=== PATIENT | male | born 1955 | race Caucasian/White ===

== ENCOUNTER 2020-08-05 12:52 | Outpatient (REF) | payer OTHER, SELFPAY ==
[2020-08-05 13:46] LABS: MANUAL DIFF FLAG NO
[2020-08-05 13:50] LABS: Basophils Percent Auto 0.2 % (0-2); Eosinophils Absolute Auto 0.1 X10*3/uL (0.0-0.4); Eosinophils Percent Auto 0.6 % (0-4); Hemoglobin 15.4 g/dl (14.0-18.0); Imm Gran Abs Auto 0.07 X10*3/uL (0.00-0.03); Imm Gran Pct Auto 0.7 % (0.0-0.4); Lymphocytes Absolute Auto 2.7 X10*3/uL (1.2-4.9); Lymphocytes Percent Auto 26.3 % (20-40); Mean Corpuscular HGB Conc 34.2 g/dl (31.0-36.0); Mean Corpuscular Hemoglobin 30.6 pg (27.0-33.0); Mean Corpuscular Volume 89.5 fL (80-98); Mean Platelet Volume 10.9 fL (9.4-12.4); Monocytes Absolute Auto 0.8 X10*3/uL (0.1-1.2); Monocytes Percent Auto 8.2 % (2-11); Neutrophils Absolute Auto 6.5 X10*3/uL (2.0-8.3); Platelet Count 274 X10*3/uL (160-400); Red Blood Count 5.03 X10*6/uL (4.60-5.80); Red Cell Distribution Width 11.9 % (11.0-16.0); White Blood Count 10.2 X10*3/uL (4.8-10.8)
[2020-08-05 14:16] LABS: Glucose Urine UA NEG (NEG); Leukocyte Esterase Urine NEG (NEG); Nitrite Urine NEG (NEG); Urine Blood NEG (NEG); Urine Ketones NEG (NEG); Urine Protein NEG (NEG-TRACE)
[2020-08-05 14:17] LABS: Appearance Urine HAZY; Color Urine YELLOW
[2020-08-05 14:37] LABS: Alanine Aminotransferase 56 U/L (0-40); Albumin Level 4.8 g/dL (3.5-5.0); Alkaline Phosphatase 87 U/L (39-117); Anion Gap 15 (12-20); Aspartate Amino Transferase 41 U/L (5-37); Bilirubin Total 0.8 mg/dL (0.0-1.0); Blood Urea Nitrogen 23 mg/dL (9-16); C Reactive Protein 0.67 mg/dL (< or = 0.50); Calcium 9.7 mg/dL (8.4-10.2); Carbon Dioxide 24 mmol/L (22-29); Chloride 101 mmol/L (96-108); Estimated Glomerular Filt Rate > 60; Glucose Random 97 mg/dL (60-115); Lipase 17 U/L (8-78); Potassium 4.1 mmol/l (3.3-5.1); Sodium 136 mmol/L (135-145); Total Protein 7.5 g/dL (6.5-8.0)
== END 2020-08-05 12:53 | disposition home or self-care (01) ==
LOC: HO.10HDL 12:52
PROVIDERS: Visit Provider Internal Medicine
DX: R11.0 Nausea (principal); I10 Essential (primary) hypertension
CPT/HCPCS: 36415; 80053; 81003; 83690; 85025; 86140

== ENCOUNTER 2021-03-03 12:20 | Outpatient (REF) | payer OTHER, SELFPAY ==
--- NOTE | ~2021-03-03 | XR_ITS ---
EXAMINATION: XR CHEST CLINICAL INFORMATION: Chest wall strain. COMPARISON: Chest 06/22/2015 TECHNIQUE: 2 views of the chest were obtained. FINDINGS: Lungs are well-expanded and clear. The heart size and pulmonary vascularity is normal. There is mild elevation of left hemidiaphragm, stable to 2015. There is mild ventral spondylosis lower dorsal spine. No lytic process. XR/XR chest 2V IMPRESSION: No acute cardiopulmonary process seen. Elevated left hemidiaphragm, unchanged to previous study 06/22/2015.
[2021-03-03 13:14] LABS: MANUAL DIFF FLAG NO
[2021-03-03 13:27] LABS: Basophils Percent Auto 0.4 % (0-2); Eosinophils Absolute Auto 0.2 X10*3/uL (0.0-0.4); Eosinophils Percent Auto 1.6 % (0-4); Hematocrit 42.2 % (42-52); Hemoglobin 13.2 g/dl (14.0-18.0); Imm Gran Abs Auto 0.04 X10*3/uL (0.00-0.03); Imm Gran Pct Auto 0.4 % (0.0-0.4); Lymphocytes Absolute Auto 2.7 X10*3/uL (1.2-4.9); Lymphocytes Percent Auto 29.2 % (20-40); Mean Corpuscular HGB Conc 31.3 g/dl (31.0-36.0); Mean Corpuscular Hemoglobin 27.2 pg (27.0-33.0); Monocytes Absolute Auto 0.6 X10*3/uL (0.1-1.2); Monocytes Percent Auto 6.3 % (2-11); Neutrophils Absolute Auto 5.8 X10*3/uL (2.0-8.3); Neutrophils Percent Auto 62.1 % (45-73); Platelet Count 315 X10*3/uL (160-400); Red Blood Count 4.85 X10*6/uL (4.60-5.80); Red Cell Distribution Width 12.3 % (11.0-16.0); White Blood Count 9.4 X10*3/uL (4.8-10.8)
[2021-03-03 13:57] LABS: Alanine Aminotransferase 38 U/L (0-40); Albumin Level 4.6 g/dL (3.5-5.0); Alkaline Phosphatase 92 U/L (39-117); Anion Gap 14 (12-20); Aspartate Amino Transferase 29 U/L (5-37); Bilirubin Total 0.4 mg/dL (0.0-1.0); Blood Urea Nitrogen 30 mg/dL (9-16); C Reactive Protein 0.62 mg/dL (< or = 0.50); Calcium 10.2 mg/dL (8.4-10.2); Carbon Dioxide 24 mmol/L (22-29); Chloride 106 mmol/L (96-108); Estimated Glomerular Filt Rate > 60; Glucose Random 90 mg/dL (60-115); Potassium 4.4 mmol/L (3.3-5.1); Sodium 140 mmol/L (135-145); Total Protein 7.4 g/dL (6.5-8.0)
== END 2021-03-03 12:21 | disposition home or self-care (01) ==
LOC: HO.XRAY 12:20
PROVIDERS: PCP Internal Medicine; Visit Provider Internal Medicine
DX: R07.89 Other chest pain (principal); I10 Essential (primary) hypertension
CPT/HCPCS: 36415; 71046; 80053; 82550; 85025; 86140

== ENCOUNTER 2021-03-30 03:25 | Emergency (ER) | payer OTHER, SELFPAY ==
--- NOTE | ~2021-03-30 | CT_ITS ---
EXAMINATION: CT ABDOMEN AND PELVIS WITHOUT CONTRAST CLINICAL INFORMATION: Abdominal pain COMPARISON: 08/10/2020 TECHNIQUE: Multidetector volumetric imaging was performed from the superior aspect of the liver through the pubic symphysis. Sagittal and coronal reformatted images were obtained on the technologist's workstation. This CT examination was performed using dose optimization techniques as appropriate, variously including the following: *Automated exposure control *Adjustment of mA and/or kV according to patient size (this includes techniques or standardized protocols for targeted exams where dose is matched to indication/reason for exam; i.e. extremities or head) *Use of iterative reconstruction technique DLP: 925 mGy-cm FINDINGS: LUNG BASES: Few tiny nodules noted along the left diaphragmatic pleura measuring up to 5 mm, new from 08/10/2020. LIVER, GALLBLADDER, AND BILIARY TREE: The liver is normal in size, shape, and attenuation. No focal hepatic lesion or biliary ductal dilatation is present. The gallbladder is unremarkable with no evidence of radiopaque gallstones, gallbladder wall thickening, or obvious pericholecystic inflammatory changes. PANCREAS: Unremarkable. SPLEEN: Unremarkable. ADRENAL GLANDS: Unremarkable. KIDNEYS AND URETERS: The kidneys are normal in size, shape, and attenuation. Redemonstrated bilateral renal cysts. No hydronephrosis, hydroureter, or calculi seen. No perinephric stranding. BLADDER: Unremarkable. GASTROINTESTINAL TRACT: The small and large bowel are unremarkable. The appendix is unremarkable. No free fluid or free air is seen. ABDOMINAL WALL: Fat-containing inguinal hernias noted. LYMPH NODES: Normal. VASCULAR: Mild scattered vascular calcifications. PELVIC VISCERA: Unremarkable. OSSEOUS STRUCTURES: Degenerative changes are noted in the spine. CT/CT abdomen pelvis wo con IMPRESSION: 1. No acute findings identified in the abdomen/pelvis. 2. Few nonspecific nodules along the left diaphragmatic pleura measuring up to 5 mm, new from 08/10/2020. Follow-up chest CT in 6 months is advised.
[2021-03-30 03:36] VITALS: BP 150/96; PULSE 70; RESP 20; TEMP 37.1; O2SAT 96; BMI 43.3
[2021-03-30 04:48] LABS: MANUAL DIFF FLAG NO
[2021-03-30] MEDS: 0.9 % Sodium Chloride 1,000 ML 999 ML IVCONT ×2 (04:48)
[2021-03-30 04:49] LABS: Basophils Percent Auto 0.2 % (0-2); Eosinophils Absolute Auto 0.4 X10*3/uL (0.0-0.4); Hematocrit 39.2 % (42-52); Hemoglobin 12.5 g/dl (14.0-18.0); Imm Gran Abs Auto 0.02 X10*3/uL (0.00-0.03); Imm Gran Pct Auto 0.2 % (0.0-0.4); Lymphocytes Absolute Auto 3.1 X10*3/uL (1.2-4.9); Lymphocytes Percent Auto 35.9 % (20-40); Mean Corpuscular HGB Conc 31.9 g/dl (31.0-36.0); Mean Corpuscular Hemoglobin 27.3 pg (27.0-33.0); Mean Corpuscular Volume 85.6 fL (80-98); Mean Platelet Volume 10.7 fL (9.4-12.4); Monocytes Absolute Auto 0.6 X10*3/uL (0.1-1.2); Monocytes Percent Auto 7.3 % (2-11); Neutrophils Absolute Auto 4.5 X10*3/uL (2.0-8.3); Neutrophils Percent Auto 52.4 % (45-73); Platelet Count 254 X10*3/uL (160-400); Red Blood Count 4.58 X10*6/uL (4.60-5.80); Red Cell Distribution Width 12.9 % (11.0-16.0); White Blood Count 8.7 X10*3/uL (4.8-10.8)
[2021-03-30 04:56] LABS: Glucose Urine UA NEG (NEG); Leukocyte Esterase Urine NEG (NEG); Nitrite Urine NEG (NEG); Specific Gravity - Urine 1.025 (1.005-1.025); Urine Blood NEG (NEG); Urine Ketones NEG (NEG); Urine Protein NEG (NEG-TRACE)
[2021-03-30 04:57] LABS: Appearance Urine CLEAR; Color Urine YELLOW
[2021-03-30 05:06] LABS: Lactic Acid 1.3 mmol/L (0.5-2.0)
[2021-03-30 05:12] LABS: Alanine Aminotransferase 25 U/L (0-40); Albumin Level 3.9 g/dL (3.5-5.0); Alkaline Phosphatase 61 U/L (39-117); Anion Gap 11 (12-20); Aspartate Amino Transferase 17 U/L (5-37); Bilirubin Direct < 0.2 mg/dL (0.0-0.5); Bilirubin Total 0.2 mg/dL (0.0-1.0); Blood Urea Nitrogen 19 mg/dL (9-16); Calcium 9.9 mg/dL (8.4-10.2); Carbon Dioxide 25 mmol/L (22-29); Chloride 107 mmol/L (96-108); Creatinine Clr Calc Pharmacy 103.8; Estimated Glomerular Filt Rate > 60; Glucose Random 102 mg/dL (60-115); Lipase 23 U/L (8-78); Potassium 4.1 mmol/L (3.3-5.1); Sodium 139 mmol/L (135-145); Total Protein 6.2 g/dL (6.5-8.0)
--- NOTE | 2021-03-30 05:43 | ED_ITS ---
HPI - Abdominal Pain General Chief Complaint: Abdominal Pain Stated Complaint: Abdominal Pain Time Seen by Provider: 03/30/21 04:04 Source: patient and family (Spouse) Mode of arrival: ambulatory Limitations: no limitations History of Present Illness HPI narrative: 66 years old male came in for evaluation of upper abdominal pain. Pain started 3 weeks ago, on and off, patient had increased pain last night, patient took Tylenol with partial relief of the pain, describes the pain as sharp pain in bilateral upper abdomen, no radiation, when pain is earlier is 5/10, nothing makes the pain worse, pain is relieved with Tylenol, no other associated symptoms, had a normal bowel movement with passing flatus, no dysuria or urinary frequency, no fever, no chills. Patient is having an appointment with Dr. Mitchell from surgery to assess the abdominal pain reportedly by the patient had an MRI done by Dr. Montero patient do not know specifics (MRI report is not available). Overall patient's appear comfortable. Related Data Allergies Allergy/AdvReac Type Severity Reaction Status Date / Time ACID FOODS Allergy Unknown RASH, HIVES Uncoded 07/16/20 17:45 acidic foods Allergy Unknown Uncoded 01/04/17 00:00 Review of Systems Review of Systems All other systems are reviewed and are negative Constitutional: Reports as per HPI and Reports no additional constitutional complaints Eyes: Reports as per HPI and Reports no additional eye complaints Reports system reviewed and no additional complaints, except as documented Cardiovascular: Reports as per HPI and Reports no additional cardiovascular complaints Respiratory: Reports as per HPI and Reports no additional respiratory complaints Gastrointestinal: Reports as per HPI and Reports no additional gastrointestinal complaints Genitourinary: Reports no additional female genitourinary complaints Musculoskeletal: Reports no additional musculoskeletal complaints Skin/Breast: Reports system reviewed and no additional complaints, except as docu Psychiatric: Reports no additional psychiatric complaints Endocrine: Reports no additional endocrine complaints Hematologic/Lymphatic: Reports no additional hematologic/lymphatic complaints Allergic/Immunologic: Reports no additional allergic/immunologic complaints Reports system reviewed and no additional complaints, except as documented and Reports Abnormal speech present Physical Exam Vital Signs: Vital Signs: Last Vital Signs Temp 98.7 F 03/30/21 03:36 Pulse 70 03/30/21 03:36 Resp 20 03/30/21 03:36 BP 150/96 H 03/30/21 03:36 Pulse Ox 96 03/30/21 03:36 Body Mass Index 43.3 Vital signs have been reviewed as appeared to be correct. Blood pressure elevated. Heart rate normal. Respiration rate normal. Temperature normal. Oxygen saturation normal. Appearance: Alert. Oriented X3. No acute distress. Head: Normal external exam. Normocephalic. Atraumatic. No Ramirez signs noted. No raccoon eyes noted Eyes: PERRLA. EOMI. Conjunctiva and sclera normal. Eyelids normal. ENT: TM's Normal. Pharynx normal. Uvula midline. Moist mucous membranes. No trismus noted. No drooling noted. No muffled voice noted. Neck: Normal inspection. Neck supple. FROM. No adenopathy. Thyroid Normal. No meningeal signs. No neck mass noted. CVS: Normal heart rate and rhythm. Heart sound normal. No murmurs noted. Pulses normal throughout. Respiratory: No respiratory distress. Painless inspiration. Breath sounds normal. No wheezes/rales/rhonchi noted. Chest nontender. No accessory muscle usage noted or decreased air movement noted. Abdomen: Soft and nontender. Bowel sounds normal in all 4 quadrants. No distention noted. No organomegaly noted. No visible injury noted. Back: No CVA tenderness. Full range of motion noted. Skin: Skin warm and dry. Normal skin color. Normal skin turgor. No rashes/lesions/lacerations noted. Extremities: No lower extremity edema. Extremities exhibit normal range of motion. Extremities nontender. Neuro: Oriented X 3. No motor deficit. No sensory deficit. Reflexes normal. Course Course Course Narrative: Assessment and plan. Acute on chronic abdominal pain, CT is unremarkable except for left pulmonary nodule, abdominal exam is unimpressive, elevation of CPK but trending down from prior, patient reported recent MRI (record is not available in the system) but patient scheduled to see surgery in 2 weeks. Patient received 1 dose of morphine/Toradol pain is gone now. Will discharge the patient to follow-up with PCP/surgery as scheduled. MDM - Abdominal Pain Lab Data Attestation: I reviewed the patient's lab results. Result diagrams: 03/30/21 04:38 03/30/21 04:38 Labs: Lab Results 03/30/21 03/30/21 03/30/21 Range/Units 04:38 04:38 04:38 WBC 8.7 (4.8-10.8) X10*3/uL RBC 4.58 L (4.60-5.80) X10*6/uL Hgb 12.5 L (14.0-18.0) g/dl Hct 39.2 L (42-52) % MCV 85.6 (80-98) fL MCH 27.3 (27.0-33.0) pg MCHC 31.9 (31.0-36.0) g/dl RDW 12.9 (11.0-16.0) % Plt Count 254 (160-400) X10*3/uL MPV 10.7 (9.4-12.4) fL Immature Gran % (Auto) 0.2 (0.0-0.4) % Neut % (Auto) 52.4 (45-73) % Lymph % (Auto) 35.9 (20-40) % [place] % (Auto) 7.3 (2-11) % Eos % (Auto) 4.0 (0-4) % Baso % (Auto) 0.2 (0-2) % Lymph # (Auto) 3.1 (1.2-4.9) X10*3/uL [place] # (Auto) 0.6 (0.1-1.2) X10*3/uL Eos # (Auto) 0.4 (0.0-0.4) X10*3/uL Baso # (Auto) 0.0 (0.0-0.2) X10*3/uL Abs Immat Gran (auto) 0.02 (0.00-0.03) X10*3/uL Absolute Neuts (auto) 4.5 (2.0-8.3) X10*3/uL Absolute Nucleated RBC 0.000 (0.0-0.012) X10*3/uL Nucleated RBC % (auto) 0.0 (0.0-0.2) /100WBC Sodium 139 (135-145) mmol/L Potassium 4.1 (3.3-5.1) mmol/L Chloride 107 (96-108) mmol/L Carbon Dioxide 25 (22-29) mmol/L Anion Gap 11 L (12-20) BUN 19 H (9-16) mg/dL Creatinine 0.93 (0.5-1.4) mg/dL Estim Creat Clear Calc 103.8 Estimated GFR > 60 Random Glucose 102 (60-115) mg/dL Lactic Acid 1.3 (0.5-2.0) mmol/L Calcium 9.9 (8.4-10.2) mg/dL Total Bilirubin 0.2 (0.0-1.0) mg/dL Direct Bilirubin < 0.2 (0.0-0.5) mg/dL AST 17 D (5-37) U/L ALT 25 (0-40) U/L Alkaline Phosphatase 61 D (39-117) U/L Total Creatine Kinase 298 H D (38-174) U/L Total Protein 6.2 L (6.5-8.0) g/dL Albumin 3.9 (3.5-5.0) g/dL Lipase 23 (8-78) U/L Urine Color Urine Appearance Urine pH (5.0-8.0) Ur Specific [place] (1.005-1.025) Urine Protein (NEG-TRACE) MG/DL Urine Glucose (UA) (NEG) MG/DL Urine Ketones (NEG) MG/DL Urine Blood (NEG) Urine Nitrite (NEG) Ur Leukocyte Esterase (NEG) 03/30/21 Range/Units 04:51 WBC (4.8-10.8) X10*3/uL RBC (4.60-5.80) X10*6/uL Hgb (14.0-18.0) g/dl Hct (42-52) % MCV (80-98) fL MCH (27.0-33.0) pg MCHC (31.0-36.0) g/dl RDW (11.0-16.0) % Plt Count (160-400) X10*3/uL MPV (9.4-12.4) fL Immature Gran % (Auto) (0.0-0.4) % Neut % (Auto) (45-73) % Lymph % (Auto) (20-40) % [place] % (Auto) (2-11) % Eos % (Auto) (0-4) % Baso % (Auto) (0-2) % Lymph # (Auto) (1.2-4.9) X10*3/uL [place] # (Auto) (0.1-1.2) X10*3/uL Eos # (Auto) (0.0-0.4) X10*3/uL Baso # (Auto) (0.0-0.2) X10*3/uL Abs Immat Gran (auto) (0.00-0.03) X10*3/uL Absolute Neuts (auto) (2.0-8.3) X10*3/uL Absolute Nucleated RBC (0.0-0.012) X10*3/uL Nucleated RBC % (auto) (0.0-0.2) /100WBC Sodium (135-145) mmol/L Potassium (3.3-5.1) mmol/L Chloride (96-108) mmol/L Carbon Dioxide (22-29) mmol/L Anion Gap (12-20) BUN (9-16) mg/dL Creatinine (0.5-1.4) mg/dL Estim Creat Clear Calc Estimated GFR Random Glucose (60-115) mg/dL Lactic Acid (0.5-2.0) mmol/L Calcium (8.4-10.2) mg/dL Total Bilirubin (0.0-1.0) mg/dL Direct Bilirubin (0.0-0.5) mg/dL AST (5-37) U/L ALT (0-40) U/L Alkaline Phosphatase (39-117) U/L Total Creatine Kinase (38-174) U/L Total Protein (6.5-8.0) g/dL Albumin (3.5-5.0) g/dL Lipase (8-78) U/L Urine Color YELLOW Urine Appearance CLEAR Urine pH 6.0 (5.0-8.0) Ur Specific [place] 1.025 (1.005-1.025) Urine Protein NEG (NEG-TRACE) MG/DL Urine Glucose (UA) NEG (NEG) MG/DL Urine Ketones NEG (NEG) MG/DL Urine Blood NEG (NEG) Urine Nitrite NEG (NEG) Ur Leukocyte Esterase NEG (NEG) Imaging Data CT scan - abdomen: Radiologist's impression: 1. No acute findings identified in the abdomen/pelvis. 2. Few nonspecific nodules along the left diaphragmatic pleura measuring up to 5 mm, new from 08/10/2020. Follow-up chest CT in 6 months is advised. Discharge Plan Discharge Clinical Impression: Incidental pulmonary nodule Abdominal pain Qualifiers: Abdominal location: upper abdomen, unspecified Qualified Code(s): R10.10 - Upper abdominal pain, unspecified Patient Disposition: Home, Self-Care Instructions: Abdominal Pain (ED) Referrals: Guille Mitchell MD [Physician] - 2 days Guille Montero MD [Primary Care Provider] - 2 days [facility] Past Medical History Medical History Hypertension Social History Social History Advance Directives: Yes Advance Directives on File: Yes Advance Directives Date on File: 08/05/20
[2021-03-30 05:48] VITALS: RESP 16
[2021-03-30] MEDS: Morphine Sulfate 2 MG/ML CARTRIDGE 1 MG IVPUSH (05:48)
[2021-03-30] MEDS: Ketorolac Tromethamine 15 MG/ML VIAL IV (05:51)
== END 2021-03-30 06:04 | disposition home or self-care (01) ==
PROVIDERS: Emergency Provider Emergency Medicine; PCP Internal Medicine
DX: R91.1 Solitary pulmonary nodule (principal); R10.10 Upper abdominal pain, unspecified; Z79.899 Other long term (current) drug therapy
CPT/HCPCS: 36415; 74176; 80048; 80076; 81003; 82550; 83605; 83690; 85025; 96365; 96372; 96375; 99283; 99284; J1885; J2270

== ENCOUNTER → 2021-04-12 14:20 | Outpatient (BNVA) | payer OTHER, SELFPAY | PROVIDERS: PCP Internal Medicine; Referring Provider Internal Medicine; Visit Provider Surgery ==

== ENCOUNTER 2021-08-13 07:57 | Outpatient (REF) | payer OTHER, SELFPAY ==
[2021-08-13 08:17] LABS: MANUAL DIFF FLAG NO
[2021-08-13 08:56] LABS: Basophils Percent Auto 0.2 % (0-2); Eosinophils Absolute Auto 0.2 X10*3/uL (0.0-0.4); Eosinophils Percent Auto 2.8 % (0-4); Hematocrit 42.8 % (42-52); Hemoglobin 14.1 g/dl (14.0-18.0); Imm Gran Abs Auto 0.06 X10*3/uL (0.00-0.03); Imm Gran Pct Auto 0.7 % (0.0-0.4); Lymphocytes Absolute Auto 2.7 X10*3/uL (1.2-4.9); Lymphocytes Percent Auto 32.2 % (20-40); Mean Corpuscular HGB Conc 32.9 g/dl (31.0-36.0); Mean Corpuscular Volume 87.9 fL (80-98); Mean Platelet Volume 10.9 fL (9.4-12.4); Monocytes Absolute Auto 0.7 X10*3/uL (0.1-1.2); Monocytes Percent Auto 7.9 % (2-11); Neutrophils Absolute Auto 4.8 X10*3/uL (2.0-8.3); Neutrophils Percent Auto 56.2 % (45-73); Platelet Count 257 X10*3/uL (160-400); Red Blood Count 4.87 X10*6/uL (4.60-5.80); Red Cell Distribution Width 12.9 % (11.0-16.0); White Blood Count 8.5 X10*3/uL (4.8-10.8)
[2021-08-13 09:17] LABS: Alanine Aminotransferase 33 U/L (0-40); Albumin Level 4.3 g/dL (3.5-5.0); Alkaline Phosphatase 61 U/L (39-117); Anion Gap 10 (12-20); Aspartate Amino Transferase 24 U/L (5-37); Bilirubin Total 0.4 mg/dL (0.0-1.0); Blood Urea Nitrogen 23 mg/dL (9-16); Calcium 9.4 mg/dL (8.4-10.2); Carbon Dioxide 27 mmol/L (22-29); Chloride 105 mmol/L (96-108); Estimated Glomerular Filt Rate > 60; Glucose Random 101 mg/dL (60-115); Potassium 4.4 mmol/L (3.3-5.1); Sodium 138 mmol/L (135-145)
== END 2021-08-13 07:58 | disposition home or self-care (01) ==
LOC: HO.LAB 07:57
PROVIDERS: PCP Internal Medicine; Visit Provider Internal Medicine Medical Oncology
DX: R91.1 Solitary pulmonary nodule (principal); I10 Essential (primary) hypertension
CPT/HCPCS: 36415; 80053; 85025

== ENCOUNTER 2021-08-16 07:39 | Outpatient (REF) | payer OTHER, SELFPAY ==
--- NOTE | ~2021-08-16 | CT_ITS ---
EXAMINATION: CT CHEST WITH CONTRAST CLINICAL INFORMATION: Chronic restrictive lung disease. COMPARISON: Chest CTA dated 06/24/2015. TECHNIQUE: Multidetector volumetric CT imaging of the chest was obtained after the administration of 50 mL of Omnipaque 350 intravenous contrast without immediate adverse reactions. Axial MIP volume rendering provided. Sagittal and coronal reformatted images were obtained. This CT examination was performed using dose optimization techniques as appropriate, variously including the following: *Automated exposure control *Adjustment of mA and/or kV according to patient size (this includes techniques or standardized protocols for targeted exams where dose is matched to indication/reason for exam; i.e. extremities or head) *Use of iterative reconstruction technique DLP: 407 mGy-cm FINDINGS: LUNGS/PLEURA/AIRWAYS: Mild linear atelectasis versus scarring is again seen in the lingula without significant change. No significant/suspicious pulmonary nodules are seen. There are no pleural effusions. The airways are patent. MEDIASTINUM: The visualized thyroid gland is unremarkable. UPPER ABDOMEN: Diffuse decreased hepatic attenuation without focal abnormality. Multiple noncalcified fluid attenuation renal cysts bilaterally. A sales and merchandising representative left interpolar cyst measures 5.4 cm (image 75, series 3). No lymphadenopathy. MUSCULOSKELETAL: Mild increased thoracic kyphosis and mild to moderate multilevel degenerative changes without significant change. No suspicious abnormality. SOFT TISSUES: Mild bilateral gynecomastia without significant change. The thoracic aorta shows minimal aortic arch calcifications without significant dilatation. No significant coronary artery calcifications. No pericardial effusion. CT/CT chest w con IMPRESSION: 1. Mild linear atelectasis versus scarring in the lingula without significant change. No suspicious pulmonary nodules. No significant interstitial lung disease or change. 2. Hepatic steatosis. 3. Stable bilateral renal cysts demonstrate benign features. 4. Mild bilateral gynecomastia without significant change.
[2021-08-16] MEDS: iohexoL 350 MG/ML 100 ML INFUS..BTL 85 ML IV (09:06)
== END 2021-08-16 07:40 | disposition home or self-care (01) ==
LOC: HO.CT 07:39
PROVIDERS: PCP Internal Medicine; Visit Provider Internal Medicine Medical Oncology
DX: R91.1 Solitary pulmonary nodule (principal)
CPT/HCPCS: 71260; Q9967

== ENCOUNTER 2023-01-20 10:16 | Outpatient (REF) | payer OTHER, SELFPAY ==
--- NOTE | ~2023-01-20 | CT_ITS ---
EXAMINATION: CT CHEST WITHOUT CONTRAST CLINICAL INFORMATION: Follow-up pulmonary nodules COMPARISON: Previous chest CT scans most recent July 2021 TECHNIQUE: Multidetector volumetric CT imaging of the chest was done. Axial MIP volume rendering provided. Sagittal and coronal reformatted images were obtained. This CT examination was performed using dose optimization techniques as appropriate, variously including the following: *Automated exposure control *Adjustment of mA and/or kV according to patient size (this includes techniques or standardized protocols for targeted exams where dose is matched to indication/reason for exam; i.e. extremities or head) *Use of iterative reconstruction technique DLP: 404 mGy-cm FINDINGS: LUNGS: There are small calcified pulmonary nodules measuring maximum 2 to 3 mm that are stable in probably represent small calcified granulomas. There is scarring or chronic subsegmental atelectasis in the inferior segment of the lingula that is stable. The lungs are otherwise clear. MEDIASTINUM: The mediastinum is normal. CORONARY ARTERY CALCIFICATION: Mild PLEURA: There is no pleural effusion. No pleural mass or thickening. AXILLA: No lymphadenopathy. UPPER ABDOMEN: Multiple liver cysts. OSSEOUS STRUCTURES: Degenerative changes of the spine. CT/CT chest wo IV con IMPRESSION: Stable small pulmonary nodules probably representing calcified granulomas. Stable chronic scarring or subsegmental atelectasis in the lingula. Fleischner guidelines were followed.
== END 2023-01-20 10:17 | disposition home or self-care (01) ==
LOC: HO.CT 10:16
PROVIDERS: PCP Internal Medicine; Visit Provider Internal Medicine
DX: Z87.09 Personal history of other diseases of the respiratory system (principal)
CPT/HCPCS: 71250

== ENCOUNTER 2023-02-03 06:57 | Outpatient (REF) | payer OTHER, SELFPAY ==
[2023-02-03 07:17] LABS: MANUAL DIFF FLAG NO
[2023-02-03 07:23] LABS: Basophils Percent Auto 0.4 % (0-2); Eosinophils Absolute Auto 0.2 X10*3/uL (0.0-0.4); Eosinophils Percent Auto 2.6 % (0-4); Hematocrit 43.5 % (42.0-52.0); Imm Gran Abs Auto 0.04 X10*3/uL (0.00-0.03); Imm Gran Pct Auto 0.5 % (0.0-0.4); Lymphocytes Percent Auto 37.9 % (20-40); Mean Corpuscular HGB Conc 32.2 g/dl (31.0-36.0); Mean Corpuscular Hemoglobin 29.2 pg (27.0-33.0); Mean Corpuscular Volume 90.8 fL (80.0-98.0); Mean Platelet Volume 10.2 fL (9.4-12.4); Monocytes Absolute Auto 0.6 X10*3/uL (0.1-1.2); Monocytes Percent Auto 7.2 % (2-11); Neutrophils Absolute Auto 4.1 x10*3/uL (2.0-8.3); Neutrophils Percent Auto 51.4 % (45-73); Platelet Count 261 X10*3/uL (160-400); Red Blood Count 4.79 X10*6/uL (4.60-5.80); Red Cell Distribution Width 12.6 % (11.0-16.0)
[2023-02-03 08:19] LABS: Alanine Aminotransferase 40 U/L (0-40); Albumin Level 4.3 g/dL (3.5-5.0); Alkaline Phosphatase 69 U/L (39-117); Anion Gap 13 (12-20); Aspartate Amino Transferase 24 U/L (5-37); Bilirubin Total 0.6 mg/dL (0.0-1.0); Blood Urea Nitrogen 20 mg/dL (9-16); Carbon Dioxide 24 mmol/L (22-29); Chloride 107 mmol/L (96-108); Cholesterol 187 mg/dL; Estimated Glomerular Filt Rate > 60; Glucose Fasting 110 mg/dL (60-99); HDL Cholesterol 36 mg/dL; LDL Cholesterol Calculated 129 mg/dl; Potassium 4.5 mmol/L (3.3-5.1); Sodium 139 mmol/L (135-145); Total Protein 6.7 g/dL (6.5-8.0); Triglycerides 111 mg/dL
[2023-02-03 08:22] LABS: Prostate Specific Antigen 0.88 ng/mL (<0.05-4.0)
== END 2023-02-03 06:58 | disposition home or self-care (01) ==
LOC: HO.LAB 06:57
PROVIDERS: PCP Internal Medicine; Visit Provider Internal Medicine
DX: Z00.00 Encounter for general adult medical examination without abnormal findings (principal); Z12.5 Encounter for screening for malignant neoplasm of prostate; Z20.2 Contact with and (suspected) exposure to infections with a predominantly sexual mode of transmission
CPT/HCPCS: 36415; 80053; 80061; 84153; 85025

== ENCOUNTER 2023-07-13 10:19 | Outpatient (REF) | payer OTHER, SELFPAY ==
[2023-07-13 12:48] LABS: MANUAL DIFF FLAG NO
[2023-07-13 12:52] LABS: Basophils Percent Auto 0.4 % (0-2); Eosinophils Absolute Auto 0.2 X10*3/uL (0.0-0.4); Eosinophils Percent Auto 2.1 % (0-4); Hematocrit 44.7 % (42.0-52.0); Hemoglobin 14.1 g/dl (14.0-18.0); Imm Gran Abs Auto 0.03 X10*3/uL (0.00-0.03); Imm Gran Pct Auto 0.4 % (0.0-0.4); Lymphocytes Absolute Auto 1.9 X10*3/uL (1.2-4.9); Lymphocytes Percent Auto 26.5 % (20-40); Mean Corpuscular HGB Conc 31.5 g/dl (31.0-36.0); Mean Corpuscular Hemoglobin 29.1 pg (27.0-33.0); Mean Corpuscular Volume 92.4 fL (80.0-98.0); Mean Platelet Volume 11.4 fL (9.4-12.4); Monocytes Absolute Auto 0.4 X10*3/uL (0.1-1.2); Monocytes Percent Auto 5.9 % (2-11); Neutrophils Absolute Auto 4.6 x10*3/uL (2.0-8.3); Neutrophils Percent Auto 64.7 % (45-73); Platelet Count 312 X10*3/uL (160-400); Red Blood Count 4.84 X10*6/uL (4.60-5.80); Red Cell Distribution Width 12.8 % (11.0-16.0); White Blood Count 7.1 X10*3/uL (4.8-10.8)
[2023-07-13 14:00] LABS: Alanine Aminotransferase 29 U/L (0-40); Albumin Level 4.5 g/dL (3.5-5.0); Alkaline Phosphatase 73 U/L (39-117); Anion Gap 16 (12-20); Aspartate Amino Transferase 23 U/L (5-37); Bilirubin Total 0.5 mg/dL (0.0-1.0); Blood Urea Nitrogen 21 mg/dL (9-16); Calcium 9.8 mg/dL (8.4-10.2); Carbon Dioxide 22 mmol/L (22-29); Chloride 104 mmol/L (96-108); Cholesterol 192 mg/dL (<200); Estimated Glomerular Filt Rate > 60; Glucose Fasting 104 mg/dL (60-99); HDL Cholesterol 43 mg/dL (>40); LDL Cholesterol Calculated 129 mg/dL (<100); Potassium 4.5 mmol/L (3.3-5.1); Sodium 137 mmol/L (135-145); Total Protein 7.8 g/dL (6.5-8.0); Triglycerides 100 mg/dL (<150)
== END 2023-07-13 10:20 | disposition home or self-care (01) ==
LOC: HO.10HDL 10:19
PROVIDERS: Visit Provider Internal Medicine
DX: I10 Essential (primary) hypertension (principal); D64.9 Anemia, unspecified
CPT/HCPCS: 36415; 80053; 80061; 85025

== ENCOUNTER 2024-02-16 06:56 | Outpatient (REF) | payer OTHER, SELFPAY ==
[2024-02-16 08:06] LABS: Estimated Average Glucose 111 mg/dL; Hemoglobin A1c % 5.5 % (<6.0)
[2024-02-16 08:40] LABS: Alanine Aminotransferase 17 U/L (0-40); Albumin Level 4.2 g/dL (3.5-5.0); Alkaline Phosphatase 73 U/L (39-117); Anion Gap 11 (12-20); Aspartate Amino Transferase 19 U/L (5-37); Bilirubin Total 0.4 mg/dL (0.0-1.0); Blood Urea Nitrogen 19 mg/dL (9-16); Calcium 9.5 mg/dL (8.4-10.2); Carbon Dioxide 25 mmol/L (22-29); Chloride 110 mmol/L (96-108); Cholesterol 167 mg/dL (<200); Estimated Glomerular Filt Rate > 60; Glucose Fasting 96 mg/dL (60-99); HDL Cholesterol 58 mg/dL (>40); LDL Cholesterol Calculated 101 mg/dL (<100); Potassium 3.9 mmol/L (3.3-5.1); Sodium 142 mmol/L (135-145); Total Protein 6.9 g/dL (6.5-8.0); Triglycerides 42 mg/dL (<150)
== END 2024-02-16 06:57 | disposition home or self-care (01) ==
LOC: HO.LAB 06:56
PROVIDERS: PCP Internal Medicine; Visit Provider Internal Medicine
DX: I10 Essential (primary) hypertension (principal); E78.00 Pure hypercholesterolemia, unspecified; R73.03 Prediabetes
CPT/HCPCS: 36415; 80053; 80061; 83036

== ENCOUNTER 2024-06-14 07:01 | Outpatient (REF) | payer OTHER, SELFPAY ==
[2024-06-14 07:13] LABS: MANUAL DIFF FLAG NO
[2024-06-14 08:00] LABS: Basophils Percent Auto 0.5 % (0-2); Eosinophils Absolute Auto 0.3 X10*3/uL (0.0-0.4); Hematocrit 44.2 % (42.0-52.0); Imm Gran Abs Auto 0.05 X10*3/uL (0.00-0.03); Imm Gran Pct Auto 0.8 % (0.0-0.4); Lymphocytes Absolute Auto 2.3 X10*3/uL (1.2-4.9); Lymphocytes Percent Auto 35.5 % (20-40); Mean Corpuscular HGB Conc 31.7 g/dl (31.0-36.0); Mean Corpuscular Hemoglobin 26.3 pg (27.0-33.0); Mean Corpuscular Volume 82.9 fL (80.0-98.0); Mean Platelet Volume 10.7 fL (9.4-12.4); Monocytes Absolute Auto 0.6 X10*3/uL (0.1-1.2); Neutrophils Absolute Auto 3.3 x10*3/uL (2.0-8.3); Neutrophils Percent Auto 50.2 % (45-73); Platelet Count 234 X10*3/uL (160-400); Red Blood Count 5.33 X10*6/uL (4.60-5.80); Red Cell Distribution Width 17.4 % (11.0-16.0); White Blood Count 6.5 X10*3/uL (4.8-10.8)
[2024-06-14 08:06] LABS: Estimated Average Glucose 114 mg/dL; Hemoglobin A1c % 5.6 % (<6.0)
[2024-06-14 08:38] LABS: Alanine Aminotransferase 24 U/L (0-40); Albumin Level 4.2 g/dL (3.5-5.0); Alkaline Phosphatase 73 U/L (39-117); Anion Gap 11 (12-20); Aspartate Amino Transferase 23 U/L (5-37); Bilirubin Total 0.3 mg/dL (0.0-1.0); Blood Urea Nitrogen 19 mg/dL (9-16); Calcium 9.2 mg/dL (8.4-10.2); Carbon Dioxide 23 mmol/L (22-29); Chloride 111 mmol/L (96-108); Estimated Glomerular Filt Rate > 60; Glucose Random 102 mg/dL (60-115); Iron 69 mcg/dL (45-160); Percent Iron Saturation 25 % (15-50); Potassium 4.4 mmol/L (3.3-5.1); Sodium 141 mmol/L (135-145); Total Iron Binding Capacity 281 mcg/dL (228-428); Total Protein 6.9 g/dL (6.5-8.0); Unsaturated Iron Binding 212 ug/dL
== END 2024-06-14 07:02 | disposition home or self-care (01) ==
LOC: HO.LAB 07:01
PROVIDERS: PCP Internal Medicine; Visit Provider Internal Medicine
DX: D64.9 Anemia, unspecified (principal); I10 Essential (primary) hypertension; G47.33 Obstructive sleep apnea (adult) (pediatric); R73.03 Prediabetes
CPT/HCPCS: 36415; 80053; 83036; 83540; 85025

== ENCOUNTER 2025-03-07 08:01 | Outpatient (REF) | payer OTHER, SELFPAY ==
--- NOTE | ~2025-03-07 | XR_ITS ---
CLINICAL HISTORY: M79.641 - Pain in right hand Three views of the right and left hand. COMPARISON: None FINDINGS: Right hand: Distal radius and ulna appear intact. Mild degenerative changes of the triscaphe and 1st CMC joints with small osteophytes. Chronic healed fracture deformity of the 5th metacarpal diaphysis. Remaining metacarpals appear intact. Phalanges appear intact. Interphalangeal joint space narrowing with small osteophytes. No lytic or sclerotic lesion. No erosion identified. Left hand: Distal radius and ulna appear intact. Degenerative changes of the 1st CMC joint with small osteophytes and joint space narrowing. Carpals, metacarpals and phalanges of the left hand appear intact and normal in alignment. Interphalangeal joint space narrowing. IMPRESSION: 1. No radiographic evidence of acute injury to the right or left hand. 2. 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 This document has been electronically signed by: Griffin Muller MD on 03/08/2025 12:51:47
[2025-03-07 09:27] LABS: MANUAL DIFF FLAG NO
[2025-03-07 09:47] LABS: Basophils Absolute Auto 0.1 X10*3/uL (0.0-0.2); Basophils Percent Auto 0.7 % (0-2); Eosinophils Absolute Auto 0.2 X10*3/uL (0.0-0.4); Eosinophils Percent Auto 2.3 % (0-4); Hematocrit 44.8 % (42.0-52.0); Hemoglobin 14.5 g/dl (14.0-18.0); Imm Gran Abs Auto 0.07 X10*3/uL (0.00-0.03); Imm Gran Pct Auto 0.9 % (0.0-0.4); Lymphocytes Absolute Auto 2.2 X10*3/uL (1.2-4.9); Lymphocytes Percent Auto 28.6 % (20-40); Mean Corpuscular HGB Conc 32.4 g/dl (31.0-36.0); Mean Corpuscular Hemoglobin 29.6 pg (27.0-33.0); Mean Corpuscular Volume 91.4 fL (80.0-98.0); Mean Platelet Volume 10.6 fL (9.4-12.4); Monocytes Absolute Auto 0.6 X10*3/uL (0.1-1.2); Monocytes Percent Auto 7.6 % (2-11); Neutrophils Absolute Auto 4.5 x10*3/uL (2.0-8.3); Neutrophils Percent Auto 59.9 % (45-73); Platelet Count 242 X10*3/uL (160-400); Red Cell Distribution Width 12.5 % (11.0-16.0); White Blood Count 7.5 X10*3/uL (4.8-10.8)
[2025-03-07 09:56] LABS: Estimated Average Glucose 120 mg/dL; Hemoglobin A1C 153.5879 umol/L; Hemoglobin A1c % 5.8 % (<6.0); Total Hemoglobin (HGBA1C) 3802.6402 umol/L
[2025-03-07 10:19] LABS: Alanine Aminotransferase 31 U/L (0-40); Albumin Level 4.3 g/dL (3.5-5.0); Alkaline Phosphatase 69 U/L (39-117); Anion Gap 10 (12-20); Aspartate Amino Transferase 27 U/L (5-37); Bilirubin Direct 0.2 mg/dL (0.0-0.5); Bilirubin Total 0.5 mg/dL (0.0-1.0); Blood Urea Nitrogen 20 mg/dL (9-16); Calcium 9.5 mg/dL (8.4-10.2); Carbon Dioxide 28 mmol/L (22-29); Chloride 105 mmol/L (96-108); Cholesterol 201 mg/dL (<200); Estimated Glomerular Filt Rate > 60; Glucose Random 107 mg/dL (60-115); HDL Cholesterol 44 mg/dL (>40); LDL Cholesterol Calculated 142 mg/dL (<100); Potassium 4.4 mmol/L (3.3-5.1); Sodium 139 mmol/L (135-145); Total Protein 6.9 g/dL (6.5-8.0); Triglycerides 79 mg/dL (<150)
[2025-03-07 10:34] LABS: Vitamin B12 569 pg/mL (200-900)
== END 2025-03-07 08:02 | disposition home or self-care (01) ==
LOC: HO.XRAY 08:01
PROVIDERS: PCP Internal Medicine; Visit Provider Physician Assistant
DX: I10 Essential (primary) hypertension (principal); Z13.1 Encounter for screening for diabetes mellitus; Z13.220 Encounter for screening for lipoid disorders; R20.2 Paresthesia of skin; M19.90 Unspecified osteoarthritis, unspecified site; M79.641 Pain in right hand; M79.642 Pain in left hand
CPT/HCPCS: 36415; 73130; 80048; 80061; 80076; 82607; 83036; 84443; 85025

== ENCOUNTER 2025-03-07 08:01 | Outpatient (AMB) | payer OTHER, SELFPAY ==
--- NOTE | 2025-03-07 08:03 | A.OFFPC_ITS ---
Vital Signs 03/07/25 08:23 Height 5 ft 8 in Weight 147.871 kg BMI 49.6 BP 152/94 H Respiration 18 Pulse 73 Pulse Source Pulse Oximeter Temp 99.1 F Temp Source Temporal Artery Scan Pulse Oximetry (%) 95 Oxygen Delivery Method Room Air Intake Visit Reasons: Routine - see comments Dental Floss Packer Required: No Accompanied by: Self / Same As Patient Allergies apixaban [From Eliquis] Adverse Reaction (Verified 03/07/25 08:19) Unknown ACID FOODS Allergy (Unknown, Uncoded 03/07/25 08:04) RASH, HIVES acidic foods Allergy (Unknown, Uncoded 03/07/25 08:04) Unknown Medication List - Last Reconciled 03/07/25 by RAQUEL Leahy acetaminophen 500 mg PO Q6H PRN aspirin 81 mg PO DAILY ibuprofen 800 mg PO TID lisinopril 5 mg PO DAILY magnesium aspart,citrate,oxide mg PO prednisolone acetate 1% 1 drp ophthalmic (eye) BID Tobacco use date assessed: 03/07/25 Fall risk assessment: No Falls in past year Last assessed Fall Risk: 03/07/25 Dental Screening Dental Screen Date: 03/07/25 Did you have a dental visit in the last 12 months?: Yes Did you have a dental problem in the last 6 months where you did not have access to dental care?: No Was dental information given to patient?: Patient has dentist HPI HPI Comments History of Present Illness Details 70-year-old male with history of hyperte nsion, osteoarthritis of the knees bilaterally, and obesity class 3 presents to the office for routine follow-up. He reports he is doing well overall although is still experiencing chronic pain in the knees bilaterally. He has a history of bilateral total knee replacement and [facility]. He rates his pain as a constant 6/10 and is taking Tylenol and ibuprofen. Reports he has tried and failed gabapentin as well as topical anal gesics. 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 He has been working on weight last to alleviate some of his pain but his job is currently impeding his ability to do this. He is retiring next week and hopes to improve his diet hand go to the senior center for more exercise. He is also reporting pain in the bilateral hands which makes it difficult to close his fist. No weakness or paresthesias. [facility], [facility] Medical History (Updated 03/07/25 @ 08:53 by RAQUEL Leahy) Chronic abdominal pain History of deviated nasal septum Hypertension Surgical History History of colonoscopy (~12/23/10) History of right inguinal hernia repair History of detached retina repair History of eye surgery History of total bilateral knee replacement Family History (Updated 03/07/25 @ 08:23 by MARIXA Denise) Father Lung cancer Mother Diabetes Social History (Updated 03/07/25 @ 08:23 by MARIXA Denise) Housing: House Alcohol intake: current Alcohol intake frequency: holidays/special occasions only Patient Tobacco Use Status: Former Tobacco user Advance Directives Date on File: 08/05/20 service: No Current occupational status: unemployed and retired Cognitive needs: No Hearing needs: No Vision needs: Yes (Rx glasses) Questionnaire PHQ-9 Over the last 2 weeks, how often have you been bothered by any of the following problems? 1. Little interest or pleasure in doing things: not at all 2. Feeling down, depressed, or hopeless: not at all 3. Trouble falling or staying asleep, or sleeping too much: not at all 4. Feeling tired or having little energy: not at all 5. Poor appetite or overeating: not at all 6. Feeling bad about yourself - or that you are a failure or have let yourself or your family down: not at all 7. Trouble concentrating on things, such as reading the newspaper or watching television: not at all 8. Moving or speaking so slowly that other people could have noticed. Or the opposite - being so fidgety or restless that you have been moving around a lot more than usual: not at all 9. Thoughts that you would be better off or of hurting yourself in some way: not at all Total score: 0 Source: Developed by Drs. Fan Wilkerson, Terri Hernandez, Andres Chris and colleagues, with an educational princess from [employer]. Thrive Questionnaire Date Thrive assessed: 03/07/25 I am a: Patient What is your living situation today?: I have a steady place to live Within the past 12 months, did the food you bought not last and you didn't have the money to get more?: Never true Within the past 12 months, did you worry whether your food would run out before you got money to buy more?: Never true Do you have trouble paying for medicines?: No Do you have trouble getting transportation to medical appointments?: No Do you have trouble paying your heating and electricity bill?: No Do you have trouble taking care of your child, family member or friend?: No Do you have trouble with day-to-day activities such as bathing, preparing meals, shopping, managing finances, etc.?: No Are you currently unemployed and looking for a job?: No Are you interested in more education?: No Please select the resources that you would like help with: None THRIVE Score: 0 AUDIT C Alcohol Use Questionnaire (AUDIT-C) 1. How often do you have a drink containing alcohol?: Never Total Score: 0 JENAE-7 AMB Questionnaire JENAE-7 Date JENAE - 7 assessed: 03/07/25 Feeling nervous, anxious, or on edge: 0 = Not at all Not being able to stop or control worryin = Not at all Worrying too much about different things: 0 = Not at all Trouble relaxin = Not at all Being so restless that it is hard to sit still: 0 = Not at all Becoming easily annoyed or irritable: 0 = Not at all Feeling afraid as if something awful might happen: 0 = Not at all Total JENAE-7 score (0-4 normal; 5-9 mild; 10-14 moderate; 15-21 severe): 0 Source: Developed by Drs. Fan Wilkerson, Terri Hernandez, Andres Chris and colleagues, with an educational princess from [employer]. Review of Systems Const All systems reviewed & are unremarkable except as noted in HPI and below Physical exam (Primary Care) Vital Signs: Last Vital Signs Temp 99.1 F 03/07/25 08:23 Pulse 73 03/07/25 08:23 Resp 18 03/07/25 08:23 BP 152/94 H 03/07/25 08:23 Pulse Ox 95 03/07/25 08:23 Oxygen Delivery Method Room Air 03/07/25 08:23 BMI result Body Mass Index 49.6 Tobacco/Smoking Status: Tobacco use Status Tobacco use date assessed 03/07/25 03/07/25 08:06 Patient Tobacco Use Status Former Tobacco user 03/07/25 08:23 PHQ-9: PHQ-9 Score PHQ-9: Total score 0 03/07/25 08:39 Thrive Assessment: Date of Thrive Assessment Date Thrive assessed 03/07/25 03/07/25 08:06 Const Other: Constitutional - Awake and Alert, No apparent distress Eyes - PERRLA, EOMI Extremities - no calf tenderness bilaterally, no swelling Musculoskeletal - difficulty making fist bilateral hands Skin - Warm/Dry Neurological - Alert & oriented x3 Psychological - Appropriate affect Coding Level of Care Code New Pt Level 4 (93032) Complex EM visit Add On G2211 Diagnoses Hypertension I10 Obesity, Class III, BMI 40-49.9 (morbid obesity) E66.813 Bilateral hand pain M79.641; M79.642 Osteoarthritis M19.90 Assessment & Plan Assessment & Plan (1) Hypertension: Code(s): I10 - Essential (primary) hypertension Category: Medical Plan: Controlled on recheck with blood pressure 128/88. Continue lisinopril 5 mg daily. Low-sodium diet. Will check BNP to evaluate renal function electrolyte levels. (2) Obesity, Class III, BMI 40-49.9 (morbid obesity): Code(s): E66.813 - Obesity, class 3 Category: Medical Plan: Discussed plans for weight loss. Recommend improving diet as well as increased exercise at the senior center as planned. (3) Bilateral hand pain: Code(s): M79.641 - Pain in right hand; M79.642 - Pain in left hand Category: Medical Plan: X-ray of the hands bilaterally. Suspect there is some degree of osteoarthritis. He can continue using ibuprofen and Tylenol. Recommend exercises to continue attempts to close hands. (4) Osteoarthritis: Code(s): M19.90 - Unspecified osteoarthritis, unspecified site Category: Medical Plan: Of multiple joints including bilateral knees and lumbar spine. Continue ibuprofen and Tylenol. Has failed multiple other medication including gabapentin and topical creams. He is hesitant to trial additional medications but did discuss options such as low-dose tramadol. He will consider this and notify the office/me if does desire to trial this meditation. He has also tried PT with good experience but did not alleviate his pain. Continue following with allan Finn as scheduled Plan Follow-up in 6 months, sooner if needed. Update routine labs including screening for type 2 diabetes. Efforts toward weight loss discussed. Contact the office for any questions or concerns. Orders: Orders Hemoglobin A1c Today I10 - Essential (primary) hypertension, Z13.1 - Encounter for screening for diabetes mellitus, Z13.220 - Encounter for screening for lipoid disorders Liver Panel Today I10 - Essential (primary) hypertension, Z13.1 - Encounter for screening for diabetes mellitus, Z13.220 - Encounter for screening for lipoid disorders Basic Metabolic Panel Today I10 - Essential (primary) hypertension, Z13.1 - Encounter for screening for diabetes mellitus, Z13.220 - Encounter for screening for lipoid disorders Lipid Panel Today I10 - Essential (primary) hypertension, Z13.1 - Encounter for screening for diabetes mellitus, Z13.220 - Encounter for screening for lipoid disorders TSH reflex Free T4 Today I10 - Essential (primary) hypertension, Z13.1 - Encounter for screening for diabetes mellitus, Z13.220 - Encounter for screening for lipoid disorders Complete Blood Count Auto Diff Today I10 - Essential (primary) hypertension, Z13.1 - Encounter for screening for diabetes mellitus, Z13.220 - Encounter for screening for lipoid disorders Vitamin B12 Today M19.90 - Unspecified osteoarthritis, unspecified site, R20.2 - Paresthesia of skin XR Hand Bilat min 3v Today M19.90 - Unspecified osteoarthritis, unspecified site, M79.641 - Pain in right hand, M79.642 - Pain in left hand Medications: New lisinopril 5 mg PO DAILY 90 tabs 1RF
--- OUTSIDE RECORDS SUMMARY | 2025-03-07 08:04 | XMS_ITS | Patient Health Record ---
Author Organization [facility] Address [address] [place] [id number] Care Team Providers Care Vending Machine Attendant Name Role Phone Guille Montero MD Primary Care Provider Unavaila Jack Schofield Jr Unavailable Reason For Referral No Information Plan Of Treatment No Information
--- OUTSIDE RECORDS SUMMARY | 2025-03-07 08:04 | XMS_ITS | Data Portability ---
Author Organization [place] - [facility], [facility] - INPATIENT Address [address] [place] [address] Care Team Providers Care Podiatric Aide Name Role Phone ELISE LUCIO Primary Care Provider [phone] Assessment Encounter Date Assessment Date Assessment LastModified by Organization Details LastModified Time 07/06/2023 07/06/2023 Impression: 68-year-old gentleman status post right knee arthroplasty with subcutaneous hematoma and associated wound breakdown. Plan: I reviewed my findings with Mr. Rae. I am concerned that the hematoma can secondarily get infected. I recommend evacuation hematoma at the bedside. Verbal consent was obtained. Able to use iris scissors and Adson forceps to clean the remove the patella. It tracked mostly in the lateral skin flap. Medially, the skin flap was well adherent to the capsule. I probed the capsule and the patella tendon confirm that there is no breach. This appears to be a subcutaneous process. The wound was then irrigated and packed with gauze. He was dressed with a compressive soft dressing. -Weight-bear as tolerated - dry dressing at least daily. - continue with oral antibiotics Follow-up with me in 1 week to assess the progress of wound healing. If there appears to be any concern for infection or stalled progress we will likely convert to operative washout and closure. Not available 07/06/2023 13:57:09 07/11/2023 07/11/2023 Impression: 68-year-old gentleman status post right knee arthroplasty with subcutaneous hematoma and associated wound breakdown. Plan: I reviewed my findings with Mr. Rae. The wound today has progressed to the point where I believe he is a candidate for surgical reconstruction. We will plan for operative debridement and washout followed by a split-thickness skin graft. He will be immobilized for 1 week to allow for the graft to take. During this time he can weight-bear as tolerated. The risks and potential complications were reviewed which include, but are not limited to: bleeding, infection, injury to blood vessels/tendons/ nerve, pain, CRPS, stiffness, and need for further surgery. He should see me postop week #1 for surgical dressing removal by me. No x-rays are needed. Not available 07/11/2023 11:45:10 07/13/2023 07/13/2023 Mr. Rae is a 68-year-old gentleman status post right knee arthroplasty with subcutaneous hematoma and associated wound breakdown. Operative debridement and washout followed by a split-thickness skin graft scheduled with Dr. Navarro on 07/17/23. Postop pain medication discussed and sent to pharmacy. Patient aware of potential adverse effects. Patient advised n.p.o. after midnight prior to surgery. He will be immobilized for 1 week to allow for the graft to take. During this time he can weight-bear as tolerated. He is scheduled to see Dr. Navarro for initial postop on 07/25/2023. No x-rays needed. This visit was conducted as a real time interactive audio/visual telehealth visit conducted via [email or web address] The patient was identified by name and date of and consented to this telehealth visit. The patient was at their home in [place] and I was at my [place] office. Participants of the telehealth visit included myself and the patient. The patient was last seen for an office visit on 07/11/23. This visit was done over the course of 15 minutes including record review.' [email or web address] Not available 07/13/2023 10:16:14 07/25/2023 07/25/2023 ? Procedure: Right knee skin graft reconstruction, 07/17/2023 S: No new numbness or tingling. Surgical pain improving. No F/C/N/V O: the bolster dressing was removed. Graft donor site is already reepithelialized . His right knee skin graft recipient site demonstrates 100% take. A/P: Doing well. - Daily soap and water. Dry dressing with small amount of antibiotic ointment is leaving the house. ? Weight-bear as tolerated with full range of motion - RTC in 2 weeks for repeat check. - X-rays are not needed Not available 07/25/2023 11:44:25 08/08/2023 08/08/2023 ? Procedure: Right knee skin graft reconstruction, 07/17/2023 S: No new numbness or tingling. Surgical pain improving. No F/C/N/V O: Graft donor site is reepithelialized . His right knee skin graft recipient site demonstrates 100% take. A/P: Doing well. - Weight-bear as tolerated and may resume physical therapy for his knee. No restrictions. Return with any questions. No x-rays needed. Not available 08/08/2023 11:39:30 Plan of Treatment Reminders Order Date Submit Date Provider Last Modified By Organization Details Last Modified Time Details Appointments None recorded. Lab None recorded. Referral None recorded. Procedures None recorded. Surgeries orthopaedic surgery (SURG) 2022 023 [email or web address] [facility]), [address], [place], [address], 3 13:14:17 incision and drainage of hematoma, seroma or fluid collection (SURG) 2022 023 [email or web address] Not available 3 12:42:33 Imaging None recorded. Medication Orders None recorded. Patient TargetsNo targets recorded. Patient InstructionsNo instructions recorded. Reason for Referral None Reported. Procedures Surgical History Date Name Laterality Status Provider Name and Address Organization Details Recorded Time 07/17/20 23 Orthopaedic Surgery completed Juanito Child [place] [facility] 07/25/2023 11:24:36 05/19/20 23 Orthopaedic Surgery completed Dilia Reyna [place] [facility] 07/06/2023 11:35:32 Imaging Results None recorded. Procedure Notes None recorded. Medical Equipment None Reported. Allergies No known drug allergies Medications Name Sig Start Date Stop Date Status Note LastModified by Organization Details LastModified Time celecoxib 200 mg capsule 07/21 completed Not Available Not Available Not Available amoxicillin 500 mg capsule TAKE 4 CAPSULES BY MOUTH 1 HOUR PRE-OP 07/21 completed Not Available Not Available Not Available hydrocodone 5 mg-acetamin ophen 325 mg tablet TAKE 1 TABLET BY MOUTH EVERY 4 TO 6 HOURS NEEDED FOR PAIN 07/21 completed Not Available Not Available Not Available tramadol 50 mg tablet Take 1 tablet every day by oral route. 07/21 completed Not Available Not Available Not Available prednisolon e acetate 1 % eye drops,suspe nsion 1 drop twice a day by ophthalmi c route. active Not Available Not Available No t Available cephalexin 500 mg capsule TAKE 1 CAPSULE BY MOUTH EVERY 12 HOURS FOR 10 DAYS active Not Available Not Available No t Available gabapentin 300 mg capsule 4 capsules every day by oral route. active Not Available Not Available No t Available cephalexin 500 mg tablet Take 1 tablet twice a day by oral route. active Not Available Not Available No t Available lisinopril 5 mg tablet Take 1 tablet every day by oral route. active Not Available Not Available No t Available oxycodone 5 mg tablet TAKE 1 TO 2 TABLETS BY MOUTH EVERY 6 HOURS NEEDED FOR POSTOP ACUTE MODERATE TO SEVERE PAIN 07/11 completed Not Available Not Available Not Available acetaminoph en 500mg 2 tabs every 6 hours active Not Available Not Available No t Available Eliquis 2.5 mg tablet TAKE 1 TABLET BY MOUTH TWICE DAILY. CONTINUE FOR 4 WEEKS AFTER SURGERY FOR DVT PREVENTIO N 07/11 completed Not Available Not Available Not Available aspirin 81 mg capsule Take 1 capsule every day by oral route. active Not Available Not Available No t Available Vitals Date Recorded Body height Body mass index (BMI) Body weight Provider Name and Address Organization Details Last Updated DateTime 07/06/2023 175.26 cm 39.9 kg/m2 956264.94 g Dilia Reyna [facility] 07/06/2023 11:35:14 Date Recorded Body height Body mass index (BMI) Body weight Provider Name and Address Organization Details Last Updated DateTime 07/11/2023 175.26 cm 39.9 kg/m2 580482.94 g [place] Amaya [facility] 07/11/2023 11:23:36 Date Recorded Body height Body mass index (BMI) Body weight Provider Name and Address Organization Details Last Updated DateTime 07/13/2023 175.26 cm 39.9 kg/m2 356440.94 g Roc Villagomez [facility] 07/13/2023 09:15:43 Date Recorded Body height Body mass index (BMI) Body weight Provider Name and Address Organization Details Last Updated DateTime 07/25/2023 175.26 cm 39.9 kg/m2 773721.94 g Juanito Child [facility] 07/25/2023 11:23:48 Date Recorded Body height Body mass index (BMI) Body weight Provider Name and Address Organization Details Last Updated DateTime 08/08/2023 175.26 cm 39.9 kg/m2 058278.94 g Roc Quintanaisaac Villagomez [facility] 08/08/2023 11:31:58 Social History Question Answer Notes LastModified by Organizat ion Details LastModified Time Tobacco Smoking Status Former Smoker Dilia randall [facility] 07/06/2023 11:35:23 What Is Your Level Of Alcohol Consumption? None Information not available 07/06/2023 Are You Currently Employed? Yes [email or web address] Information not available 08/08/2023 Do You Or Have You Ever Used E-cigarettes Or Vape? 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 1 PPD [email or web address] Information not available 07/06/2023 How Many Years Have You Smoked Tobacco? 10 [email or web address] Information not available 07/06/2023 Sex: Unknown Functional Status None recorded. Mental Status None recorded. Family History Relationship Description Onset Age of this Age Resolved Age Notes LastModified by Organization Details LastModified Time Father No current problems or disability [email or web address] Not available 11:38:04 Mother No current problems or disability [email or web address] Not available 11:38:04 Medical History Condition Response High Blood Pressure Y Osteoarthritis / Rheumatoid arthritis / Other Y Past Encounters Encounter ID Performer Location Encounter Start Date Encounter Closed Date Diagnosis/Indication Diagnosis SNOMED-CT Code Diagnosis ICD10 Code Diagnosis Note [id number] KELSEY NAVARRO MD [address] [address] 07/06/2023 10:54:31 07/06/2023 11:53:30 Open wound of right knee 2420362471 8920293 S81.001A History of total knee arthroplasty 1433535670 105 Z96.659 Hematoma o f right knee region 1082270883 9158185 S80.01XA [id number] KELSEY NAVARRO MD [facility] [address] [place] [phone] 07/11/2023 10:47:07 07/11/2023 11:52:59 Open wound of right knee 3812445900 7458140 S81.001A History of total knee arthroplasty 1117515123 105 Z96.659 Hematoma o f right knee region 3113530879 0786665 S80.01XA [id number] RAQUEL MART [facility] [address] [address] 07/13/2023 07:34:44 07/14/2023 14:54:09 Hematoma of right knee region 6815454337 7351640 S80.01XA [id number] KELSEY NAVARRO MD [facility] [address] [place] [phone] 07/25/2023 10:52:58 07/25/2023 12:13:17 Hematoma of right knee region 7307208881 1527819 S80.01XA [id number] KELSEY NAVARRO MD [facility] [address] [place], [place] [phone] 08/08/2023 11:03:14 08/08/2023 14:30:12 Hematoma of right knee region 3440783106 2837049 S80.01XA Health Concerns Section Related Observation LastModified by Organization Detai ls LastModified Time None Recorded Concern Status LastModified by Organization Details LastModified Time None Recorded Advance Directives Directive None Recorded Payers Insurance Date Sequence Insurance Name Policy Number Policy [place] Covered Member ID [place] Member ID Guarantor Name 08/10/2023 1 [employer] [place] [id number] Mike Rae [id number] Mike Rae Notes Date Note Type Note Provider Name and Address Organization Details Recorded Time 07/06/2023 text/html Mr. Rae is a very pleasant 68-year-old gentleman presents after right total knee arthroplasty on 05/19/[address] Francesco Marte. His initial postoperative course is unremarkable. He has been on Eliquis for DVT prophylaxis. However approximately 2 weeks ago, he noted drainage and breakdown of the distal pole of his right knee incision. He was referred by Dr. Marte for further evaluation. He is currently suppressive oral antibiotics. He denies any fevers, chills, nausea or vomiting. KELSEY NAVARRO MD [address] [place] [address], [phone], [facility] 07/06/2023 13:59:59 07/11/2023 text/html Mr. Rae is a very pleasant 68-year-old gentleman presents after right total knee arthroplasty on 05/19/[address] Francesco Marte. His initial postoperative course is unremarkable. He has been on Eliquis for DVT prophylaxis. Since his last visit with me he denies any further drainage or concerns for progression of infection. He continues with his oral antibiotics. He takes tramadol at night for restless leg.. He denies any fevers, chills, nausea or vomiting. KELSEY NAVARRO MD [address] [place] [address], [phone], [facility] 07/11/2023 11:46:28 07/13/2023 text/html Mr. Rae is a 68-year-old gentleman status post right knee arthroplasty with subcutaneous hematoma and associated wound breakdown. Operative debridement and washout followed by a split-thickness skin graft scheduled with Dr. Navarro on 07/17/23. No recent change to PMHx. He is scheduled for H&P 07/14 with PCP. Labwork to be completed today at PCP's office. RAQUEL MART [address] [place] [address], [phone], [facility] 07/14/2023 20:08:17
[2025-03-07 08:23] VITALS: BP 152/94; PULSE 73; RESP 18; TEMP 37.3; O2SAT 95; BMI 49.6
== END 2025-03-07 08:59 | disposition home or self-care (01) ==
LOC: HO.HMCHD 08:02
PROVIDERS: PCP Internal Medicine; Visit Provider Physician Assistant
DX: I10 Essential (primary) hypertension (principal); E66.813 Obesity, class 3; M79.641 Pain in right hand; M79.642 Pain in left hand; M19.90 Unspecified osteoarthritis, unspecified site

== ENCOUNTER → 2025-03-07 09:26 | Outpatient (BNV) | payer OTHER, SELFPAY | PROVIDERS: PCP Internal Medicine; Visit Provider Radiology Diagnostic Radiology | DX: M79.641 Pain in right hand (principal) | CPT/HCPCS: 73130 ==